=== PATIENT | male | born 1955 ===

== ENCOUNTER 2018-02-09 12:27 | Emergency (ER) | payer OTHER ==
[2018-02-09 12:38] VITALS: TEMP 98
--- NOTE | 2018-02-09 14:30 | C.PDOC ---
History Of Present Illness 62 year old male presents to the ED for evaluation of a pruritic rash to the dorsum of his right hand and small region of the dorsum of left hand which began 3 days ago. Patient took Benadryl PO without relief. 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 Patient denies fever, chills, shortness of breath, cough. Time Seen by Provider: 02/09/18 13:23 Chief Complaint (Nursing): Upper Extremity Problem/Injury History Per: Patient History/Exam Limitations: no limitations Onset/Duration Of Symptoms: Days (3) Current Symptoms Are (Timing): Still Present Quality: "Pain" Additional History Per: Patient Past Medical History Reviewed: Historical Data, Nursing Documentation, Vital Signs Vital Signs: Last Vital Signs Temp 98.0 F 02/09/18 12:34 Pulse 70 02/09/18 14:42 Resp 16 02/09/18 14:42 BP 150/98 H 02/09/18 14:42 Pulse Ox 97 02/09/18 14:42 - Medical History PMH: HTN Surgical History: No Surg Hx Family History: States: Unknown Family Hx - Social History Hx Alcohol Use: No Hx Substance Use: No - Immunization History Hx Tetanus Toxoid Vaccination: No Hx Influenza Vaccination: Yes Hx Pneumococcal Vaccination: No Review Of Systems Constitutional: Negative for: Fever, Chills Respiratory: Negative for: Cough, Shortness of Breath Skin: Positive for: Rash Physical Exam - Physical Exam Appears: Non-toxic, No Acute Distress Skin: Normal Color, Warm, Dry, Rash (blotchy wheals to dorsum of right hand, above wrist with sparing of lee surface. small, 3x3cm area to dorsum of left distal wrist. small area to bilateral eyebrows) Head: Atraumatic, Normacephalic Eye(s): bilateral: Normal Inspection Oral Mucosa: Moist Neck: Supple Chest: Symmetrical, No Deformity, No Tenderness Cardiovascular: Rhythm Regular, No Murmur Respiratory: Normal Breath Sounds, No Rales, No Rhonchi, No Wheezing Extremity: Normal ROM, Capillary Refill (less than 2 seconds) Neurological/Psych: Oriented x3, Normal Speech, Normal Cognition ED Course And Treatment O2 Sat by Pulse Oximetry: 95 (on RA) Pulse Ox Interpretation: Normal Progress Note: Benadryl PO, Pepcid PO, and Prednisone PO administered. 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 Sigue en nuest[facility] (gratis) jessica necessario en 2-3 sheth jessica necessario Prescriptions: Prednisone [Deltasone] 40 mg PO DAILY #8 tablet Instructions: Contact Dermatitis (DC), Skin Rash Forms: [employer] (Slovenian) Print Language: AMERICAN - Clinical Impression Clinical Impression: Rash - Scribe Statement The provider has reviewed the documentation as recorded by the Scribe (Denia Taveras) Provider Attestation: All medical record entries made by the Scribe were at my direction and personally dictated by me. I have reviewed the chart and agree that the record accurately reflects my personal performance of the history, physical exam, medical decision making, and the department course for this patient. I have also personally directed, reviewed, and agree with the discharge instructions and disposition.
[2018-02-09 14:42] VITALS: BP 150/98; PULSE 70; RESP 16
[2018-02-09 15:33] VITALS: O2SAT 95
== END 2018-02-09 14:43 | disposition home or self-care (01) ==
LOC: C.ER 12:27
DX: R21 Rash and other nonspecific skin eruption (principal)